=== PATIENT | female | born 1940 | race Asian ===

== ENCOUNTER 2017-04-05 19:06 | Emergency (ER) | payer MEDICARE, OTHER ==
[2017-04-05 20:11] LABS: CALCIUM 9.3 mg/dL (8.5-10.3); CREATININE 0.7 mg/dL (0.4-1.0); POTASSIUM 3.4 mmol/L (3.5-5.0)
[2017-04-05 20:14] VITALS: BP 197/83
--- NOTE | 2017-04-05 20:16 | ED Physician Documentation ---
History of Present Illness - Stated complaint Stated Complaint: HIGH BLOOD PRESSURE - Chief complaint Chief Complaint: General - History obtained from History obtained from: Patient, Family - History of Present Illness Timing: Other (She says she saw her physician a few months ago and her blood pressure was high but no changes in medications. Today she went to the dentist for repair now and they refused to do it because of hypertension. She really has no symptoms, no chest pain or trouble breathing, no severe headache no urinary complaints.) Review of Systems Constitutional: reports: Reviewed and negative Ears: reports: Reviewed and negative Nose: reports: Reviewed and negative Throat: reports: Reviewed and negative PD PAST MEDICAL HISTORY - Past Medical History Cardiovascular: Hypertension, High cholesterol - Past Surgical History Past Surgical History: No - Present Medications Home Medications: Ambulatory Orders Medication Instructions Recorded Confirmed Azithromycin [Zithromax] 250 mg PO DAILY #6 tablet 04/24/15 Losartan [Cozaar] 25 mg PO ONCE 04/24/15 04/24/15 Luvox 04/24/15 04/24/15 Metoprolol Tartrate 04/24/15 04/24/15 Risperidone [Risperdal] 04/24/15 04/24/15 Losartan [Cozaar] 50 mg PO DAILY #30 tablet 04/05/17 - Allergies Allergies/Adverse Reactions: Allergies Allergy/AdvReac Type Severity Reaction Status Date / Time depression med Allergy Unknown Uncoded 04/05/17 19:17 - Social History Does the pt smoke?: No Smoking Status: Never smoker Does the pt drink ETOH?: No Does the pt have substance abuse?: No PD ED PE NORMAL - Vitals Vital signs reviewed: Yes - General General: Alert and oriented X 3, No acute distress - Cardiac Cardiac: RRR, No murmur - Respiratory Respiratory: No respiratory distress, Clear bilaterally - Abdomen Abdomen: Non tender - Neuro Neuro: Alert and oriented X 3, direct care specialist 2-12 intact, Normal speech - Psych Psych: Normal mood, Normal affect Results - Vitals Vitals: Vital Signs - 24 hr 04/05/17 04/05/17 19:11 20:08 Temperature 36.0 C L Heart Rate 50 L 49 L Respiratory 18 18 Rate Blood Pressure 217/74 H 207/69 H O2 Saturation 99 99 Oxygen O2 Source Room air - EKG (time done) 1940 Rate: Rate (enter#) (45) Rhythm: Sinus bradycardia [place]: Normal Intervals: Normal [place] QRS: Normal Ischemia: Normal ST segments Computer interpretation: Agree with computer - Labs Labs: Laboratory Tests 04/05/17 19:55 Sodium 143 Potassium 3.4 L Chloride 101 Carbon Dioxide 33 H Anion Gap 9.0 BUN 14 Creatinine 0.7 Estimated GFR (MDRD) 82 L Glucose 99 Calcium 9.3 PD MEDICAL DECISION MAKING - ED course ED course: She has asymptomatic hypertension, and there is no evidence of acute end organ damage. We will double her losartan and close followup was advised. Departure - Departure Disposition: Home, Self Care Clinical Impression: Hypertension Qualifiers: Hypertension type: essential hypertension Qualified Code(s): I10 - Essential ( primary) hypertension Condition: Good Record reviewed to determine appropriate education?: Yes Instructions: ED HTN Established Prescriptions: Losartan [Cozaar] 50 mg PO DAILY #30 tablet Comments: Take the new prescription (double dose) prescription for losartan and continue your metoprolol. Return if worse. Followup with your DrLes for recheck in one week the
== END 2017-04-05 20:21 | disposition home or self-care (01) ==
LOC: ED 19:06
DX: I10 Essential (primary) hypertension (principal); E78.00 Pure hypercholesterolemia, unspecified
CPT/HCPCS: 36415; 80048; 93005; 99283

== ENCOUNTER 2017-11-09 13:41 | Outpatient (CLI) | payer MEDICARE, OTHER | END 2017-11-09 13:42 | disposition EMS.NT | LOC: EMS 13:41 | PROVIDERS: ATTEND Surgery | DX: R42 Dizziness and giddiness (principal) ==

== ENCOUNTER 2018-01-29 19:42 | Outpatient (CLI) | payer MEDICARE, OTHER | END 2018-01-29 19:43 | disposition critical access hospital (66) | LOC: EMS 19:42 | PROVIDERS: ATTEND Surgery | DX: R11.2 Nausea with vomiting, unspecified (principal); R68.83 Chills (without fever) | CPT/HCPCS: A0425; A0427 ==

== ENCOUNTER 2018-01-29 20:15 | Emergency (ER) | payer MEDICARE, OTHER ==
[2018-01-29] MEDS ORDERED: SODIUM CHLORIDE 0.9% 1,000 ML IV ONE (20:54)
--- NOTE | 2018-01-29 20:55 | ED Physician Documentation ---
PD HPI NVD - Stated complaint Stated Complaint: N/V/SHAKING - Chief complaint Chief Complaint: Abd Pain - History obtained from History obtained from: Patient, Family, EMS - History of Present Illness Timing - onset: Enter time (1200), Today Timing - duration: Hours Timing - details: Gradual onset, Still present Associated symptoms: Dizzy, Near syncope / syncope Contributing factors: Bad food Improved by: Meds Similar symptoms before: Has not had sx before Recently seen: Not recently seen - Additonal information Additional information: 77-year-old female with a history of hypertension is gone to [facility] in [facility] this morning when she went to get her haircut and she developed some nausea and vomiting and has felt like she was ready to pass out. She is called the ambulance she was administered Zofran in route and feels well on arrival. She was not ill prior to all this and states that she did feel some chills today as this was happening. Review of Systems Constitutional: reports: Chills. denies: Fever Eyes: denies: Decreased vision Ears: denies: Ear pain Nose: denies: Congestion Throat: denies: Sore throat Cardiac: denies: Chest pain / pressure, Palpitations Respiratory: denies: Dyspnea, Cough GI: reports: Nausea, Vomiting. denies: Abdominal Pain, Diarrhea : reports: Frequency. denies: Dysuria Skin: denies: Rash Musculoskeletal: denies: Neck pain, Back pain, Extremity pain Neurologic: reports: Near syncope, Other (Dizziness). denies: Generalized weakness, Focal weakness, Numbness PD PAST MEDICAL HISTORY - Past Medical History Cardiovascular: Hypertension, High cholesterol - Past Surgical History Past Surgical History: No - Present Medications Home Medications: Ambulatory Orders Medication Instructions Recorded Confirmed ALPRAZolam [Alprazolam] 0.5 mg PO BID PRN 01/29/18 01/29/18 Fluvoxamine Maleate 1 tab PO BID 01/29/18 01/29/18 Losartan/Hydrochlorothiazide 1 tab PO DAILY 01/29/18 01/29/18 [Losartan-Hctz 100-12.5 mg Tab] Potassium Chloride [Klor-Con M20] 1 tab PO DAILY 01/29/18 01/29/18 Spironolactone 1 tab PO DAILY 01/29/18 01/29/18 - Allergies Allergies/Adverse Reactions: Allergies Allergy/AdvReac Type Severity Reaction Status Date / Time lisinopril AdvReac Dizziness Verified 01/29/18 20:21 - Living Situation Living Situation: reports: With spouse/s.o. - Social History Does the pt smoke?: No Smoking Status: Never smoker Does the pt drink ETOH?: No Does the pt have substance abuse?: No - Family History Family history: reports: Non contributory PD ED PE NORMAL - Vitals Vital signs reviewed: Yes (Hypertensive) - General General: Alert and oriented X 3, No acute distress, Well developed/nourished - HEENT HEENT: Atraumatic, PERRL, EOMI - Neck Neck: Supple, no meningeal sign - Cardiac Cardiac: RRR, No murmur - Respiratory Respiratory: No respiratory distress, Clear bilaterally - Abdomen Abdomen: Soft, Non tender - Back Back: No CVA TTP, No spinal TTP - Derm Derm: Normal color, Warm and dry, No rash - Extremities Extremities: No deformity, No edema - Neuro Neuro: No motor deficit, No sensory deficit Eye Opening: Spontaneous Motor: Obeys Commands Verbal: Oriented GCS Score: 15 - Psych Psych: Normal mood, Normal affect Results - Vitals Vitals: Vital Signs - 24 hr 01/29/18 01/29/18 20:16 22:21 Temperature 36.2 C L 36.2 C L Heart Rate 88 87 Respiratory 18 20 Rate Blood Pressure 178/68 H 150/89 H O2 Saturation 98 97 Oxygen O2 Source Room air - Labs Labs: Laboratory Tests 01/29/18 01/29/18 01/29/18 20:37 20:37 21:14 WBC 6.5 RBC 4.78 Hgb 14.2 Hct 42.7 MCV 89.3 MCH 29.7 MCHC 33.3 RDW 12.5 Plt Count 244 MPV 8.0 Neut # 5.7 Lymph # 0.6 L [place] # 0.2 Eos # 0.0 Baso # 0.0 Absolute Nucleated RBC 0.01 Nucleated RBC % 0.1 Sodium 129 L Potassium 4.1 Chloride 92 L Carbon Dioxide 26 Anion Gap 11.0 BUN 17 Creatinine 0.8 Estimated GFR (MDRD) 70 L Glucose 151 H Calcium 9.0 Total Bilirubin 0.5 AST 26 ALT 26 Alkaline Phosphatase 49 Total Protein 7.2 Albumin 4.5 Globulin 2.7 Albumin/Globulin Ratio 1.7 Lipase 22 Urine Color YELLOW Urine Clarity CLEAR Urine pH 7.0 Ur Specific [place] 1.010 Urine Protein NEGATIVE Urine Glucose (UA) NEGATIVE Urine Ketones NEGATIVE Urine Occult Blood TRACE-INTA Urine Nitrite NEGATIVE Urine Bilirubin NEGATIVE Urine Urobilinogen 0.2 (NORMAL) Ur Leukocyte Esterase NEGATIVE Ur Microscopic Review NOT INDICATED Urine Culture Comments NOT INDICATED Procedures - IVC sono (time) 2044 Bedside IVC sono: IVC measures (cm) (1.4), IVC collapsed c insp (cm) (complete) , Dehydration (est less than one liter) PD MEDICAL DECISION MAKING - ED course Complexity details: reviewed old records, reviewed results, re-evaluated patient , considered differential, d/w patient, d/w family ED course: 77-year-old female with history of hypertension as developed some nausea and vomiting she is mildly dehydrated on arrival to the emergency department and she is feeling better after receiving 4 mg of Zofran intravenously in route to the hospital. She has mild dehydration and she is administered 1 L of saline and her urine and blood work are checked. Departure - Departure Disposition: 01 Home, Self Care Clinical Impression: Dehydration, Gastroenteritis Instructions: ED Dehydration, ED Gastroenteritis Non Infec Follow-Up: Chantal Lazo MD [Primary Care Provider] - Comments: Today your blood sugar was 150. This is elevated and may indicate diabetes. It is not elevated into a dangerous level and it is something he should follow- up with your primary care doctor about. There is a laboratory test pending which will give your primary care doctor a better idea of what your blood sugars have been running over the past 6 weeks.
[2018-01-29 20:59] LABS: BASOPHILS % (AUTO) 0.6 %; EOSINOPHILS % (AUTO) 0.1 %; HGB - HEMOGLOBIN 14.2 g/dL (12.0-16.0); LYMPHOCYTES # (AUTO) 0.6 10^3/uL (1.5-3.5); LYMPHOCYTES % (AUTO) 8.6 %; MEAN CORPUSCULAR HEMOGLOBIN 29.7 pg (27.0-31.0); MEAN CORPUSCULAR HGB CONC 33.3 g/dL (32.0-36.0); MEAN CORPUSCULAR VOLUME 89.3 fL (81.0-99.0); MONOCYTES # (AUTO) 0.2 10^3/uL (0.0-1.0); MONOCYTES % (AUTO) 2.9 %; NEUTROPHILS # (AUTO) 5.7 10^3/uL (1.5-6.6); NEUTROPHILS % (AUTO) 87.8 %; PLT - PLATELET COUNT 244 10^3/uL (130-450); RED BLOOD COUNT 4.78 10^6/uL (4.20-5.40); RED CELL DISTRIBUTION WIDTH 12.5 % (12.0-15.0); WHITE BLOOD COUNT 6.5 x10^3/uL (4.8-10.8)
[2018-01-29 21:09] LABS: ALBUMIN 4.5 g/dL (3.2-5.5); ALBUMIN/GLOBULIN RATIO 1.7 (1.0-2.2); BILIRUBIN,TOTAL 0.5 mg/dL (0.2-1.0); CREATININE 0.8 mg/dL (0.4-1.0); TOTAL PROTEIN 7.2 g/dL (6.7-8.2)
[2018-01-29 22:23] VITALS: BP 150/89
[2018-01-29 22:31] LABS: BILIRUBIN,URINE NEGATIVE (NEGATIVE); GLUCOSE, URINE (UA) NEGATIVE (NEGATIVE); KETONES,URINE (UA) NEGATIVE (NEGATIVE); LEUKOCYTE ESTERASE, URINE NEGATIVE (NEGATIVE); NITRITE,URINE NEGATIVE (NEGATIVE); OCCULT BLOOD,URINE TRACE-INTA (NEGATIVE); PROTEIN,URINE NEGATIVE (NEGATIVE); UROBILINOGEN,URINE 0.2 (NORMAL) E.U./dL (NORMAL)
[2018-01-29 22:32] LABS: CLARITY,URINE CLEAR (CLEAR)
[2018-01-29] MEDS ORDERED: ONDANSETRON ODT 4 MG Prepack 2 TL PRN (22:36)
[2018-01-29 23:03] LABS: HB2 TOTAL 16.2 g/dL; HEMOGLOBIN A1C 0.71 g/dL; HEMOGLOBIN A1C % 6.2 % (4.6-6.2)
== END 2018-01-29 22:48 | disposition home or self-care (01) ==
LOC: EDUNIT# → ED 20:15
DX: E86.0 Dehydration (principal); K52.9 Noninfective gastroenteritis and colitis, unspecified; R73.9 Hyperglycemia, unspecified; I10 Essential (primary) hypertension; E78.00 Pure hypercholesterolemia, unspecified
CPT/HCPCS: 36415; 80053; 81001; 81003; 83036; 83690; 85025; 87086; 96360; 99283; 99284

== ENCOUNTER 2023-10-23 04:31 | Outpatient (CLI) | payer MEDICARE, OTHER | END 2023-10-23 23:59 | disposition critical access hospital (66) | LOC: EMS 04:31 | DX: R20.0 Anesthesia of skin (principal); R55 Syncope and collapse; R06.4 Hyperventilation ==

== ENCOUNTER 2023-10-23 05:01 | Emergency (ER) | payer MEDICARE, OTHER ==
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
[2023-10-23] MEDS ORDERED: SODIUM CHLORIDE 0.9% 1,000 ML IV STA (05:20)
[2023-10-23 06:08] LABS: BASOPHILS # (AUTO) 0.1 10^3/uL (0.0-0.1); EOSINOPHILS # (AUTO) 0.2 10^3/uL (0.0-0.7); EOSINOPHILS % (AUTO) 3.9 %; HCT - HEMATOCRIT 46.2 % (37.0-47.0); HGB - HEMOGLOBIN 14.8 g/dL (12.0-16.0); LYMPHOCYTES # (AUTO) 1.4 10^3/uL (1.5-3.5); LYMPHOCYTES % (AUTO) 29.5 %; MEAN CORPUSCULAR VOLUME 90.6 fL (81.0-99.0); MEAN PLATELET VOLUME 10.2 fL (7.9-10.8); MONOCYTES # (AUTO) 0.4 10^3/uL (0.0-1.0); MONOCYTES % (AUTO) 8.8 %; NEUTROPHILS # (AUTO) 2.8 10^3/uL (1.5-6.6); NEUTROPHILS % (AUTO) 56.6 %; PLT - PLATELET COUNT 227 10^3/uL (130-450); RED CELL DISTRIBUTION WIDTH 12.6 % (12.0-15.0); WHITE BLOOD COUNT 4.9 x10^3/uL (4.8-10.8)
[2023-10-23 06:31] LABS: ALBUMIN 4.1 g/dL (3.2-5.5); ALBUMIN/GLOBULIN RATIO 1.8 (1.0-2.2); BILIRUBIN,TOTAL 0.5 mg/dL (0.2-1.0); CALCIUM 8.7 mg/dL (8.5-10.3); CREATININE 0.8 mg/dL (0.6-1.3); POTASSIUM 4.2 mmol/L (3.5-4.5); TOTAL PROTEIN 6.4 g/dL (6.4-8.9)
[2023-10-23 07:53] VITALS: BP 121/63; O2SAT 98
--- NOTE | 2023-10-23 08:14 | XRAY Report ---
PROCEDURE: Chest 1V INDICATIONS: dyspnea, arms numb TECHNIQUE: One view of the chest was acquired. COMPARISON: Chest x-ray 7:15 FINDINGS: Surgical changes and devices: None. Lungs and pleura: No pleural effusions or pneumothorax. Lungs are clear. Mediastinum: Mediastinal contours appear normal. Heart size is enlarged. Bones and chest wall: No suspicious bony lesions. Overlying soft tissues appear unremarkable. IMPRESSION: No acute cardiopulmonary process. The above findings are concordant with preliminary report. Reviewed by: Jeanne Ennis MD on 10/23/2023 8:13 AM PST Approved by: Jeanne Ennis MD on 10/23/2023 8:13 AM [facility] Station ID: [id number]
== END 2023-10-23 07:48 | disposition home or self-care (01) ==
LOC: EDUNIT# → ED 05:01
DX: R20.0 Anesthesia of skin (principal); I10 Essential (primary) hypertension
CPT/HCPCS: 36415; 80053; 83690; 83735; 84484; 85025; 93005; 99283; 99284

== ENCOUNTER 2024-01-01 13:06 | Outpatient (CLI) | payer MEDICARE, OTHER | END 2024-01-01 23:59 | disposition EMS.NT | LOC: EMS 13:06 | DX: R20.0 Anesthesia of skin (principal); R06.4 Hyperventilation; R14.0 Abdominal distension (gaseous); R10.13 Epigastric pain ==